=== PATIENT | female | born 1940 | race Caucasian/White ===

== ENCOUNTER 2017-06-29 10:06 | Observation (INO) | payer MEDICARE, OTHER ==
[~2017-06-29] VITALS: Ht 152.4 cm; Wt 62.7 kg
[~2017-06-29 10:06] MED LIST: DEXL60CA3 PO; LEVO137T21 PO; LISI-222 PO; ROSU10TA PO; TESTOSTERONE; ZOLP5TAB8 PO; [UNRECOGNIZED DRUG - OTHER]; [UNRECOGNIZED DRUG - OTHER] TP
[2017-06-29] MEDS ORDERED: HYDROmorphone 1 mg/ml syringe IM ONE (10:25)
[2017-06-29] MEDS ORDERED: HYDROcodone/acetaminophen 10/325mg tab PO ONE (10:25)
[2017-06-29] MEDS ORDERED: HYDR-565 PO (10:46)
[2017-06-29 12:07] LABS: BASOPHILS % (AUTO) 0.1 % (0-1); EOSINOPHILS # (AUTO) 0.1 X10'3 (0-0.9); EOSINOPHILS % (AUTO) 0.7 % (0-6); HEMATOCRIT 40.3 % (35.0-45.0); HEMOGLOBIN 13.8 g/dl (12.0-16.0); LYMPHOCYTES # (AUTO) 0.8 X10'3 (1.1-4.8); LYMPHOCYTES % (AUTO) 7.5 % (21-51); MEAN CORPUSCULAR HEMOGLOBIN 38.4 PG (27.0-31.0); MEAN CORPUSCULAR HGB CONC 34.3 % (33.0-36.5); MEAN CORPUSCULAR VOLUME 111.9 FL (78-98); MONOCYTES # (AUTO) 0.2 X10'3 (0-0.9); MONOCYTES % (AUTO) 2.1 % (2-12); NEUTROPHILS % (AUTO) 89.6 % (42-75); PLATELET COUNT 337 X10'3 (140-440); WHITE BLOOD COUNT 11.2 X10'3 (4.5-11.0)
[2017-06-29 12:17] LABS: ALANINE AMINOTRANSFERASE 20 U/L (12-78); ALBUMIN 4.4 G/DL (3.4-5.0); ALBUMIN/GLOBULIN RATIO 1.2 (1.1-1.5); ALKALINE PHOSPHATASE 97 IU/L (46-116); ANION GAP 15 (8-16); ASPARTATE AMINO TRANSFERASE 21 U/L (10-37); BILIRUBIN,TOTAL 1.5 MG/DL (0.1-1.0); BLOOD UREA NITROGEN 12 MG/DL (7-18); BUN/CREATININE RATIO 17.1 (6.6-38.0); CHLORIDE 102 MMOL/L (99-107); GLUCOSE 117 MG/DL (70-104); POTASSIUM 4.7 MMOL/L (3.5-5.1); SODIUM 140 MMOL/L (135-145); TOTAL CARBON DIOXIDE 23.3 MMOL/L (24-32); TOTAL PROTEIN 8.1 G/DL (6.4-8.2); eGFR 82 ML/MIN
[2017-06-29 12:29] LABS: ANISOCYTOSIS 1+; PLATELET ESTIMATE NORMAL; POLYCHROMASIA 1+
[2017-06-29 12:30] LABS: STOMATOCYTES 1+
[2017-06-29] MEDS ORDERED: PROG100C6 PO (12:36)
[2017-06-29] MEDS ORDERED: SIMV10TA6 PO (12:36)
[2017-06-29] MEDS ORDERED: DULO60CA64 PO (12:36)
[2017-06-29] MEDS ORDERED: OMEP20TA23 PO (12:36)
[2017-06-29] MEDS ORDERED: HYDROmorphone 2mg/ml vial IV PRN (12:40)
[2017-06-29] MEDS ORDERED: HYDROmorphone inj. 0.5 MG/0.5 ML DISP.SYRIN ONE (12:42)
[2017-06-29] MEDS ORDERED: ondansetron/PF 4mg/2ml inj IV ONE (12:55)
[2017-06-29] MEDS ORDERED: magnesium 4gm in 100ml NS 100 ML IV PRN (14:50)
[2017-06-29] MEDS ORDERED: magnesium 2GM in 50ml NS 50 ML IV PRN (14:50)
[2017-06-29] MEDS ORDERED: potassium Cl 20 mEq SR tablet PO PRN ×2 (14:50)
[2017-06-29] MEDS ORDERED: HYDROmorphone inj. 0.5 MG/0.5 ML DISP.SYRIN IV PRN ×2 (14:50)
[2017-06-29] MEDS ORDERED: morphine 4 MG/ML inj SYRINge IV PRN (14:50)
[2017-06-29] MEDS ORDERED: haloperidol lactate 5mg/ml inj IM PRN (14:50)
[2017-06-29] MEDS ORDERED: acetaminophen 325mg tablet PO PRN ×2 (14:50)
[2017-06-29] MEDS ORDERED: magnesium hydroxide 30ml (MOM) UD suspension PO PRN (14:50)
[2017-06-29] MEDS ORDERED: HYDROcodone/acetaminophen 5mg/325mg tablet PO PRN (14:50)
[2017-06-29] MEDS ORDERED: LORazepam 2 mg/ml vial IV PRN (14:50)
[2017-06-29] MEDS ORDERED: thiamine inj. 100 MG in normal saline 100ml IV soln 100 ML IV ONE (14:50)
[2017-06-29] MEDS ORDERED: diphenhydrAMINE 50 mg/ml inj IV PRN (14:50)
[2017-06-29] MEDS ORDERED: mag hydrox/Alum hydrox/simeth 30ml oral suspension PO PRN (14:50)
[2017-06-29] MEDS ORDERED: magnesium Cl slow-release 64mg tablet PO PRN (14:50)
[2017-06-29] MEDS ORDERED: ondansetron/PF 4mg/2ml inj IV PRN (14:50)
[2017-06-29] MEDS: K and/or MAG REPLACEMENT MC SCH (14:50)
[2017-06-29] MEDS ORDERED: potassium Cl 40MEQ/NS 500ml 500 ML IV PRN ×2 (14:50)
[2017-06-29] MEDS ORDERED: haloperidol 5mg tablet PO PRN (14:50)
[2017-06-29] MEDS ORDERED: hydrALAZINE 20mg/ml inj. IV ONE (15:20)
[2017-06-29] MEDS ORDERED: hydrALAZINE 20mg/ml inj. IV PRN (15:20)
[2017-06-29] MEDS: lisinopril 10 MG tablet PO SCH (15:22)
[2017-06-29] MEDS: normal saline 1000ml 1,000 ML IV SCH (15:22)
[2017-06-29] MEDS: morphine 4 MG/ML inj SYRINge IV PRN ×2 (15:50→20:20)
[2017-06-29] MEDS: HYDROcodone/acetaminophen 10/325mg tab PO PRN ×2 (16:43→21:37)
[2017-06-29] MEDS: heparin, porcine 5000 units/ml vial SQ SCH (20:00)
[2017-06-29] MEDS ORDERED: progesterone, micronized 100mg capsule PO SCH (21:00)
[2017-06-29] MEDS ORDERED: atorvastatin 20mg tablet PO SCH (21:00)
[2017-06-29] MEDS ORDERED: zolpidem 5mg tablet PO SCH (21:00)
[2017-06-30] MEDS: normal saline 1000ml 1,000 ML IV SCH (00:46)
[2017-06-30] MEDS: HYDROcodone/acetaminophen 10/325mg tab PO PRN (01:20)
[2017-06-30 07:22] LABS: EOSINOPHILS # (AUTO) 0.1 X10'3 (0-0.9); HEMATOCRIT 33.9 % (35.0-45.0); HEMOGLOBIN 11.6 g/dl (12.0-16.0); LYMPHOCYTES # (AUTO) 0.9 X10'3 (1.1-4.8); MEAN CORPUSCULAR HEMOGLOBIN 38.1 PG (27.0-31.0); MEAN CORPUSCULAR HGB CONC 34.1 % (33.0-36.5); MEAN CORPUSCULAR VOLUME 111.9 FL (78-98); MEAN PLATELET VOLUME 6.5 FL (7.4-10.4); MONOCYTES # (AUTO) 0.4 X10'3 (0-0.9); PLATELET COUNT 275 X10'3 (140-440); RED BLOOD COUNT 3.03 X10'6 (4.20-5.60); RED CELL DISTRIBUTION WIDTH 16.4 % (11.5-14.5); WHITE BLOOD COUNT 5.4 X10'3 (4.5-11.0)
[2017-06-30] MEDS ORDERED: pantoprazole 40mg Tablet.DR PO SCH (07:30)
[2017-06-30 07:32] LABS: INR 0.9 INR; PROTHROMBIN TIME 9.8 SECONDS (9.0-12.0)
[2017-06-30 07:39] LABS: LYMPHOCYTES % (AUTO) 15.5 % (21-51); MONOCYTES % (AUTO) 6.3 % (2-12); NEUTROPHILS % (AUTO) 75.9 % (42-75)
[2017-06-30 07:40] LABS: BASOPHILS % (AUTO) 0.2 % (0-1); EOSINOPHILS % (AUTO) 2.1 % (0-6); NEUTROPHILS # (AUTO) 4.2 X10'3 (1.8-7.7)
[2017-06-30 07:42] LABS: PLATELET ESTIMATE NORMAL
[2017-06-30] MEDS: heparin, porcine 5000 units/ml vial SQ SCH (07:42)
[2017-06-30] MEDS: K and/or MAG REPLACEMENT MC SCH (07:42)
[2017-06-30] MEDS: lisinopril 10 MG tablet PO SCH (07:42)
[2017-06-30 07:44] LABS: ANISOCYTOSIS 1+; POLYCHROMASIA 1+; STOMATOCYTES 1+
[2017-06-30 07:49] LABS: ALANINE AMINOTRANSFERASE 13 U/L (12-78); ALBUMIN 3.2 G/DL (3.4-5.0); ALBUMIN/GLOBULIN RATIO 1.1 (1.1-1.5); ALKALINE PHOSPHATASE 74 IU/L (46-116); AMYLASE 24 U/L (25-115); ANION GAP 11 (8-16); ASPARTATE AMINO TRANSFERASE 16 U/L (10-37); BILIRUBIN,TOTAL 1.3 MG/DL (0.1-1.0); BLOOD UREA NITROGEN 13 MG/DL (7-18); BUN/CREATININE RATIO 20.3 (6.6-38.0); CALCIUM 8.1 MG/DL (8.5-10.1); CHLORIDE 105 MMOL/L (99-107); CREATININE 0.64 MG/DL (0.40-0.90); GLUCOSE 93 MG/DL (70-104); LIPASE 66 U/L (73-393); MAGNESIUM 1.5 MG/DL (1.5-2.4); PHOSPHORUS 3.2 MG/DL (2.3-4.5); POTASSIUM 3.6 MMOL/L (3.5-5.1); SODIUM 138 MMOL/L (135-145); TOTAL CARBON DIOXIDE 22.4 MMOL/L (24-32); eGFR 90 ML/MIN
[2017-06-30] MEDS ORDERED: thiamine 100mg tablet PO SCH (08:00)
[2017-06-30] MEDS ORDERED: multivitamins, therapeutics tablet PO SCH (08:00)
[2017-06-30] MEDS ORDERED: folic acid 1mg tablet PO SCH (08:00)
[2017-06-30] MEDS ORDERED: duloxetine 30mg CAPSULE.DR PO SCH (08:00)
[2017-06-30] MEDS: morphine 4 MG/ML inj SYRINge IV PRN (08:44)
[2017-06-30 09:45] VITALS: BP 136/68
[2017-06-30] MEDS ORDERED: MULT-1179 PO (11:31)
[2017-06-30] MEDS ORDERED: FOLI1TAB16 PO (11:31)
[2017-06-30] MEDS ORDERED: HYDR-569 PO (11:31)
[2017-06-30] MEDS ORDERED: THI100T PO (11:31)
[2017-07-01] MEDS ORDERED: LORazepam 2 mg/ml vial IV PRN (14:50)
[2017-07-01] MEDS ORDERED: LORazepam 1 MG tablet PO PRN (14:50)
[2017-07-03] MEDS ORDERED: LORazepam 1 MG tablet PO PRN (14:50)
[2017-07-03] MEDS ORDERED: LORazepam 2 mg/ml vial IV PRN (14:50)
== END 2017-06-30 12:25 | disposition home or self-care (01) ==
LOC: ER 10:06 → ED HOLD 14:49
PROVIDERS: ADMIT Family Medicine; ATTEND Family Medicine
DX: S22.41XA Multiple fractures of ribs, right side, initial encounter for closed fracture (principal); I10 Essential (primary) hypertension; J93.83 Other pneumothorax; K44.9 Diaphragmatic hernia without obstruction or gangrene; J43.9 Emphysema, unspecified; D72.829 Elevated white blood cell count, unspecified; F32.9 Major depressive disorder, single episode, unspecified; F41.9 Anxiety disorder, unspecified; F10.10 Alcohol abuse, uncomplicated; W01.0XXA Fall on same level from slipping, tripping and stumbling without subsequent striking against object, initial encounter; Y93.89 Activity, other specified; Y92.89 Other specified places as the place of occurrence of the external cause; Y99.8 Other external cause status; Z87.891 Personal history of nicotine dependence; Z90.710 Acquired absence of both cervix and uterus; Z85.850 Personal history of malignant neoplasm of thyroid
CPT/HCPCS: 36415; 71101; 71250; 80053; 82150; 83690; 83735; 84100; 85025; 85610; 96361; 96365; 96366; 96372; 96375; 96376; 99285; G0378; J1170; J1644; J2270; J2405; J3411; J7030; J0360